=== PATIENT | female | born 1965 | race Two or more races ===

== ENCOUNTER 2017-07-14 09:29 | Outpatient (CLI) | payer BC ==
[2017-07-14 11:24] LABS: ALBUMIN 3.5 g/dL (3.4-5.0); BILIRUBIN,TOTAL 0.6 mg/dL (0.2-1.0); CALCIUM, SERUM 8.4 mg/dL (8.5-10.1); CREATININE 0.5 mg/dL (0.6-1.3); POTASSIUM 3.7 mmol/L (3.5-5.1); TOTAL PROTEIN, SERUM 7.7 g/dL (6.4-8.2)
[2017-07-14 11:37] LABS: THYROID STIMULATING HORMONE 1.209 uIU/mL (0.358-3.74)
[2017-07-14 11:45] LABS: BASOPHILS # (AUTO) 0.1 /CMM (0.0-0.2); BASOPHILS % (AUTO) 0.8 % (0.0-2.0); EOSINOPHILS % (AUTO) 3.4 % (0.0-6.0); HEMATOCRIT 40 % (33-45); HEMOGLOBIN 13.3 g/dL (11.5-14.8); LYMPHOCYTES # (AUTO) 2.1 /CMM (0.8-4.8); MEAN CORPUSCULAR HGB CONC 34 g/dl (31.0-36.0); MEAN CORPUSCULAR VOLUME 83 fL (82-100); MONOCYTES # (AUTO) 0.4 /CMM (0.1-1.30); MONOCYTES % (AUTO) 5.6 % (2.0-12.0); NEUTROPHILS # (AUTO) 4.8 /CMM (1.8-8.9); NEUTROPHILS % (AUTO) 62.2 % (43.0-81.0); PLATELET COUNT (AUTO) 225 /CMM (150-450); RDW COEFFICIENT OF VARIATION 14.8 (11.5-15.0); RED BLOOD CELL COUNT(AUTO) 4.77 MIL/uL (4.0-5.2); WHITE BLOOD COUNT (AUTO) 7.7 K/uL (4.3-11.0)
[2017-07-14 11:49] LABS: APPEARANCE,URINE CLEAR (CLEAR); BILIRUBIN,URINE NEGATIVE (NEGATIVE); BLOOD, URINE NEGATIVE Ery/uL (NEGATIVE); COLOR,URINE YELLOW (YELLOW); KETONES,URINE NEGATIVE (NEGATIVE); LEUKOCYTE ESTERASE ,URINE NEGATIVE (NEGATIVE); NITRITE, URINE NEGATIVE (NEGATIVE); PH,URINE 6.5 (5.0-8.0); PROTEIN,URINE NEGATIVE (NEGATIVE); UGLUCOSE NEGATIVE (NEGATIVE); UROBILINOGEN,URINE 0.2 EU/dL (0.2)
[2017-07-14 11:54] LABS: C-REACTIVE PROTEIN 0.7 mg/dL (0.0-0.9)
[2017-07-14 12:07] LABS: OCCULT BLOOD STOOL NEGATIVE (NEGATIVE)
[2017-07-15 08:10] LABS: T3, FREE 2.9 pg/mL (2.0-4.4)
== END 2017-07-14 23:59 | disposition home or self-care (01) ==
LOC: LAB 09:29
DX: Z00.01 Encounter for general adult medical examination with abnormal findings (principal); R79.89 Other specified abnormal findings of blood chemistry
CPT/HCPCS: 36415; 80053-TC; 80061-TC; 81000-TC; 82272-TC; 82306; 84439-TC; 84443-TC; 84481; 85025-TC; 85652-TC; 86140-TC

== ENCOUNTER 2017-08-04 11:23 | Outpatient (CLI) | payer BC ==
[2017-08-04 13:17] LABS: BILIRUBIN,URINE NEGATIVE (NEGATIVE); BLOOD, URINE NEGATIVE Ery/uL (NEGATIVE); COLOR,URINE DARK YELLO (YELLOW); KETONES,URINE TRACE (NEGATIVE); LEUKOCYTE ESTERASE ,URINE NEGATIVE (NEGATIVE); NITRITE, URINE POSITIVE (NEGATIVE); PROTEIN,URINE TRACE mg/dl (NEGATIVE); UGLUCOSE NEGATIVE (NEGATIVE)
[2017-08-04 13:20] LABS: APPEARANCE,URINE CLEAR (CLEAR)
[2017-08-04 13:31] LABS: BACTERIA,URINE Few /HPF (None Seen); RBC,URINE 0-2 /HPF (0-2); SQUAMOUS EPITHELIAL CELL,UR 0-2 /HPF (None Seen); WBC,URINE 0-2 /HPF (0-3)
== END 2017-08-04 23:59 | disposition home or self-care (01) ==
LOC: LAB 11:23
DX: N39.0 Urinary tract infection, site not specified (principal)
CPT/HCPCS: 81000-TC; 87086-TC

== ENCOUNTER 2017-08-11 10:56 | Outpatient (CLI) | payer BC | END 2017-08-11 23:59 | disposition home or self-care (01) | LOC: LAB 10:56 | DX: I77.810 Thoracic aortic ectasia (principal) | CPT/HCPCS: 36415; 71046; 85652-TC; 86140-TC; 86431-TC ==

== ENCOUNTER 2017-09-22 18:32 | Emergency (ER) | payer BC, OTHER ==
[~2017-09-22] VITALS: Ht 162.6 cm; Wt 101.3 kg
--- NOTE | 2017-09-22 18:45 | NUR ---
HIGH BLOOD PRESSURE IN DRs OFFICE DIASTOLIC >100. NAD NOTED, VSS, RESP EVEN AND UNLABORED, PT WAS PUT ON MONITOR, WAITING FOR MD MENARD.
[2017-09-22] MEDS ORDERED: IBUPROFEN 400 MG TABLET PO ONE (19:00)
[2017-09-22] MEDS ORDERED: IBUPROFEN 400 MG TABLET ONE (19:02)
[2017-09-22 19:20] LABS: BASOPHILS # (AUTO) 0.1 /CMM (0.0-0.2); BASOPHILS % (AUTO) 0.7 % (0.0-2.0); EOSINOPHILS % (AUTO) 4.5 % (0.0-6.0); HEMATOCRIT 42 % (33-45); HEMOGLOBIN 13.7 g/dL (11.5-14.8); LYMPHOCYTES # (AUTO) 2.7 /CMM (0.8-4.8); LYMPHOCYTES % (AUTO) 32.6 % (20.0-44.0); MEAN CORPUSCULAR HGB CONC 33 g/dl (31.0-36.0); MEAN CORPUSCULAR VOLUME 84 fL (82-100); MONOCYTES # (AUTO) 0.6 /CMM (0.1-1.30); MONOCYTES % (AUTO) 7.5 % (2.0-12.0); NEUTROPHILS # (AUTO) 4.4 /CMM (1.8-8.9); NEUTROPHILS % (AUTO) 54.7 % (43.0-81.0); PLATELET COUNT (AUTO) 225 /CMM (150-450); RDW COEFFICIENT OF VARIATION 14.1 (11.5-15.0); RED BLOOD CELL COUNT(AUTO) 4.99 MIL/uL (4.0-5.2); WHITE BLOOD COUNT (AUTO) 8.2 K/uL (4.3-11.0)
[2017-09-22 19:30] LABS: CALCIUM, SERUM 9.1 mg/dL (8.5-10.1); CREATININE 0.7 mg/dL (0.6-1.3); POTASSIUM 3.6 mmol/L (3.5-5.1)
[2017-09-22 19:34] LABS: INR 0.89 (0.85-1.15)
[2017-09-22 19:36] LABS: ALBUMIN 3.7 g/dL (3.4-5.0); BILIRUBIN,DIRECT 0.1 mg/dL (0.0-0.2); BILIRUBIN,TOTAL 0.7 mg/dL (0.2-1.0); TOTAL PROTEIN, SERUM 7.3 g/dL (6.4-8.2)
[2017-09-22 20:09] VITALS: BP 149/89
--- NOTE | 2017-09-22 20:11 | NUR ---
Patient discharged to home in stable condition. Written and verbal after care instructions given. Patient verbalizes understanding of instruction.
== END 2017-09-22 20:12 | disposition home or self-care (01) ==
LOC: ER 18:35
DX: R03.0 Elevated blood-pressure reading, without diagnosis of hypertension (principal); R51 Headache; H57.8 Other specified disorders of eye and adnexa
CPT/HCPCS: 36415; 70450; 71045; 80048; 80076; 83690; 85025; 85730; 99285; A4606; Z7610

== ENCOUNTER 2017-11-10 07:36 | Outpatient (CLI) | payer BC ==
[2017-11-10 08:05] LABS: BASOPHILS % (AUTO) 0.6 % (0.0-2.0); EOSINOPHILS % (AUTO) 3.4 % (0.0-6.0); HEMATOCRIT 38 % (33-45); HEMOGLOBIN 12.8 g/dL (11.5-14.8); LYMPHOCYTES # (AUTO) 2.4 /CMM (0.8-4.8); LYMPHOCYTES % (AUTO) 31.5 % (20.0-44.0); MEAN CORPUSCULAR HEMOGLOBIN 29 PG (26.0-33.0); MEAN CORPUSCULAR HGB CONC 34 g/dl (31.0-36.0); MEAN CORPUSCULAR VOLUME 86 fL (82-100); MONOCYTES # (AUTO) 0.5 /CMM (0.1-1.30); MONOCYTES % (AUTO) 6.3 % (2.0-12.0); NEUTROPHILS # (AUTO) 4.4 /CMM (1.8-8.9); NEUTROPHILS % (AUTO) 58.2 % (43.0-81.0); PLATELET COUNT (AUTO) 215 /CMM (150-450); RDW COEFFICIENT OF VARIATION 14.8 (11.5-15.0); RED BLOOD CELL COUNT(AUTO) 4.48 MIL/uL (4.0-5.2); WHITE BLOOD COUNT (AUTO) 7.6 K/uL (4.3-11.0)
[2017-11-10 08:44] LABS: THYROID STIMULATING HORMONE 3.872 uIU/mL (0.358-3.74)
[2017-11-10 09:04] LABS: ALBUMIN 3.4 g/dL (3.4-5.0); BILIRUBIN,TOTAL 0.8 mg/dL (0.2-1.0); CALCIUM, SERUM 8.5 mg/dL (8.5-10.1); CREATININE 0.6 mg/dL (0.6-1.3); POTASSIUM 3.6 mmol/L (3.5-5.1); TOTAL PROTEIN, SERUM 6.9 g/dL (6.4-8.2)
== END 2017-11-10 23:59 | disposition home or self-care (01) ==
LOC: LAB 07:36
DX: E78.5 Hyperlipidemia, unspecified (principal); E66.9 Obesity, unspecified; R53.83 Other fatigue
CPT/HCPCS: 36415; 80053-TC; 80061-TC; 84443-TC; 85025-TC

== ENCOUNTER 2017-12-05 08:00 | Outpatient (CLI) | payer BC ==
[2017-12-05 08:55] LABS: C-REACTIVE PROTEIN 0.6 mg/dL (0.0-0.9); THYROID STIMULATING HORMONE 1.611 uIU/mL (0.358-3.74)
[2017-12-06 16:09] LABS: *ANA ANTI-CENTROMERE B AB <0.2 AI (0.0-0.9); *ANA ANTI-DNA(DS) AB, QN 1 IU/mL (0-9); *ANA ANTI-JO-1 <0.2 AI (0.0-0.9); *ANA ANTICHROMATIN ANTIBODY <0.2 AI (0.0-0.9); *ANA RNP ANTIBODIES <0.2 AI (0.0-0.9); *ANA SJOGREN'S ANTI-SS-A <0.2 AI (0.0-0.9); *ANA SJOGREN'S ANTI-SS-B <0.2 AI (0.0-0.9); *ANAANTI-SCLERODERMA-70 AB <0.2 AI (0.0-0.9); *ANASMITH AB <0.2 AI (0.0-0.9)
== END 2017-12-05 23:59 | disposition home or self-care (01) ==
LOC: LAB 08:00
DX: E03.9 Hypothyroidism, unspecified (principal); R53.81 Other malaise
CPT/HCPCS: 36415; 84443-TC; 85652-TC; 86140-TC; 86225; 86235; 86431-TC

== ENCOUNTER 2018-05-07 07:22 | Outpatient (CLI) | payer BC ==
[2018-05-07 07:56] LABS: APPEARANCE,URINE SL CLOUDY (CLEAR); BILIRUBIN,URINE NEGATIVE (NEGATIVE); BLOOD, URINE NEGATIVE Ery/uL (NEGATIVE); COLOR,URINE YELLOW (YELLOW); KETONES,URINE NEGATIVE (NEGATIVE); LEUKOCYTE ESTERASE ,URINE NEGATIVE (NEGATIVE); NITRITE, URINE NEGATIVE (NEGATIVE); PH,URINE 5.5 (5.0-8.0); PROTEIN,URINE NEGATIVE (NEGATIVE); UGLUCOSE NEGATIVE (NEGATIVE); UROBILINOGEN,URINE 0.2 EU/dL (0.2)
[2018-05-07 07:59] LABS: BASOPHILS # (AUTO) 0.1 /CMM (0.0-0.2); BASOPHILS % (AUTO) 1.1 % (0.0-2.0); EOSINOPHILS % (AUTO) 4.4 % (0.0-6.0); HEMATOCRIT 43 % (33-45); HEMOGLOBIN 14.5 g/dL (11.5-14.8); LYMPHOCYTES % (AUTO) 31.9 % (20.0-44.0); MEAN CORPUSCULAR HGB CONC 33 g/dl (31.0-36.0); MEAN CORPUSCULAR VOLUME 85 fL (82-100); MONOCYTES # (AUTO) 0.5 /CMM (0.1-1.30); MONOCYTES % (AUTO) 7.8 % (2.0-12.0); NEUTROPHILS # (AUTO) 3.5 /CMM (1.8-8.9); NEUTROPHILS % (AUTO) 54.8 % (43.0-81.0); PLATELET COUNT (AUTO) 212 /CMM (150-450); RED BLOOD CELL COUNT(AUTO) 5.09 MIL/uL (4.0-5.2); WHITE BLOOD COUNT (AUTO) 6.4 K/uL (4.3-11.0)
[2018-05-07 08:12] LABS: BILIRUBIN,TOTAL 1.1 mg/dL (0.2-1.0); CREATININE 0.7 mg/dL (0.6-1.3); POTASSIUM 3.8 mmol/L (3.5-5.1); TOTAL PROTEIN, SERUM 7.5 g/dL (6.4-8.2)
[2018-05-07 08:20] LABS: FREE T4 (FREE THYROXINE) 1.03 ng/dL (0.76-1.46); THYROID STIMULATING HORMONE 1.933 uIU/mL (0.358-3.74)
== END 2018-05-07 23:59 | disposition home or self-care (01) ==
LOC: LAB 07:22
DX: I10 Essential (primary) hypertension (principal); K21.9 Gastro-esophageal reflux disease without esophagitis; R53.81 Other malaise; R53.83 Other fatigue
CPT/HCPCS: 36415; 80053-TC; 80061-TC; 81000-TC; 84439-TC; 84443-TC; 84481; 85025-TC; 87086-TC

== ENCOUNTER 2018-06-23 08:13 | Outpatient (CLI) | payer BC ==
[2018-06-23 09:14] LABS: APPEARANCE,URINE CLEAR (CLEAR); BILIRUBIN,URINE NEGATIVE (NEGATIVE); BLOOD, URINE NEGATIVE Ery/uL (NEGATIVE); KETONES,URINE TRACE (NEGATIVE); LEUKOCYTE ESTERASE ,URINE NEGATIVE (NEGATIVE); NITRITE, URINE NEGATIVE (NEGATIVE); PH,URINE 5.5 (5.0-8.0); PROTEIN,URINE NEGATIVE (NEGATIVE); UGLUCOSE NEGATIVE (NEGATIVE); UROBILINOGEN,URINE 0.2 EU/dL (0.2)
[2018-06-23 09:33] LABS: COLOR,URINE YELLOW (YELLOW)
[2018-06-23 09:35] LABS: BACTERIA,URINE Few /HPF (None Seen); RBC,URINE 0-2 /HPF (0-2); SQUAMOUS EPITHELIAL CELL,UR Few /HPF (None Seen)
[2018-06-23 09:36] LABS: MUCUS,URINE Few /LPF (None Seen)
== END 2018-06-23 23:59 | disposition home or self-care (01) ==
LOC: LAB 08:13
DX: N39.0 Urinary tract infection, site not specified (principal); R05 Cough
CPT/HCPCS: 71046; 81000-TC; 87086-TC; 87186-TC

== ENCOUNTER 2018-09-22 07:36 | Outpatient (CLI) | payer BC ==
[2018-09-22 09:26] LABS: APPEARANCE,URINE CLEAR (CLEAR); BILIRUBIN,URINE NEGATIVE (NEGATIVE); BLOOD, URINE NEGATIVE Ery/uL (NEGATIVE); COLOR,URINE YELLOW (YELLOW); KETONES,URINE NEGATIVE (NEGATIVE); LEUKOCYTE ESTERASE ,URINE NEGATIVE (NEGATIVE); NITRITE, URINE NEGATIVE (NEGATIVE); PROTEIN,URINE NEGATIVE (NEGATIVE); UGLUCOSE NEGATIVE (NEGATIVE); UROBILINOGEN,URINE 0.2 EU/dL (0.2)
[2018-09-22 09:29] LABS: BASOPHILS # (AUTO) 0.1 /CMM (0.0-0.2); EOSINOPHILS % (AUTO) 3.9 % (0.0-6.0); HEMATOCRIT 41 % (33-45); HEMOGLOBIN 13.5 g/dL (11.5-14.8); LYMPHOCYTES # (AUTO) 2.3 /CMM (0.8-4.8); LYMPHOCYTES % (AUTO) 38.3 % (20.0-44.0); MEAN CORPUSCULAR HGB CONC 33 g/dl (31.0-36.0); MEAN CORPUSCULAR VOLUME 85 fL (82-100); MONOCYTES # (AUTO) 0.4 /CMM (0.1-1.30); MONOCYTES % (AUTO) 7.4 % (2.0-12.0); NEUTROPHILS # (AUTO) 2.9 /CMM (1.8-8.9); NEUTROPHILS % (AUTO) 49.4 % (43.0-81.0); PLATELET COUNT (AUTO) 205 /CMM (150-450); RED BLOOD CELL COUNT(AUTO) 4.78 MIL/uL (4.0-5.2); WHITE BLOOD COUNT (AUTO) 5.9 K/uL (4.3-11.0)
[2018-09-22 09:46] LABS: ALBUMIN 3.7 g/dL (3.4-5.0); BILIRUBIN,TOTAL 0.8 mg/dL (0.2-1.0); CREATININE 0.7 mg/dL (0.6-1.3); POTASSIUM 3.9 mmol/L (3.5-5.1); TOTAL PROTEIN, SERUM 7.3 g/dL (6.4-8.2)
[2018-09-22 10:05] LABS: C-REACTIVE PROTEIN 0.3 mg/dL (0.0-0.9); THYROID STIMULATING HORMONE 2.323 uIU/mL (0.358-3.74); URIC ACID 5.4 mg/dL (2.6-7.2)
[2018-09-23 08:07] LABS: T3, FREE 3.3 pg/mL (2.0-4.4)
[2018-09-23 19:08] LABS: *ANA ANTI-CENTROMERE B AB <0.2 AI (0.0-0.9); *ANA ANTI-DNA(DS) AB, QN 1 IU/mL (0-9); *ANA ANTI-JO-1 <0.2 AI (0.0-0.9); *ANA ANTICHROMATIN ANTIBODY <0.2 AI (0.0-0.9); *ANA RNP ANTIBODIES <0.2 AI (0.0-0.9); *ANA SJOGREN'S ANTI-SS-A <0.2 AI (0.0-0.9); *ANA SJOGREN'S ANTI-SS-B <0.2 AI (0.0-0.9); *ANAANTI-SCLERODERMA-70 AB <0.2 AI (0.0-0.9); *ANASMITH AB <0.2 AI (0.0-0.9)
[2018-09-24 02:09] LABS: FOLIC ACID 13.7 ng/mL (>3.0)
[2018-09-24 19:13] LABS: CCP IgG/IgA AB 4 units (0-19)
== END 2018-09-22 23:59 | disposition home or self-care (01) ==
LOC: LAB 07:36
PROVIDERS: ATTEND Legal Medicine
DX: Z00.00 Encounter for general adult medical examination without abnormal findings (principal); E11.9 Type 2 diabetes mellitus without complications; I10 Essential (primary) hypertension; E03.9 Hypothyroidism, unspecified; D64.9 Anemia, unspecified; E55.9 Vitamin D deficiency, unspecified
CPT/HCPCS: 36415; 80053-TC; 80061-TC; 81000-TC; 82306; 82728-TC; 83540-TC; 84439-TC; 84443-TC; 84481; 84550-TC; 85025-TC; 85652-TC; 86140-TC; 86200; 86225; 86235; 86431-TC

== ENCOUNTER 2018-12-07 11:42 | Outpatient (CLI) | payer BC ==
[2018-12-07 12:09] LABS: BILIRUBIN,URINE NEGATIVE (NEGATIVE); BLOOD, URINE NEGATIVE Ery/uL (NEGATIVE); COLOR,URINE YELLOW (YELLOW); KETONES,URINE NEGATIVE (NEGATIVE); LEUKOCYTE ESTERASE ,URINE NEGATIVE (NEGATIVE); NITRITE, URINE NEGATIVE (NEGATIVE); PH,URINE 5.5 (5.0-8.0); PROTEIN,URINE NEGATIVE (NEGATIVE); UGLUCOSE NEGATIVE (NEGATIVE); UROBILINOGEN,URINE 0.2 EU/dL (0.2)
[2018-12-07 12:28] LABS: APPEARANCE,URINE CLEAR (CLEAR)
== END 2018-12-07 23:59 | disposition home or self-care (01) ==
LOC: LAB 11:42
PROVIDERS: ATTEND Legal Medicine
DX: N39.0 Urinary tract infection, site not specified (principal)
CPT/HCPCS: 81000-TC; 87086-TC

== ENCOUNTER 2019-01-21 14:38 | Outpatient (CLI) | payer BC | END 2019-01-21 23:59 | disposition home or self-care (01) | LOC: RAD 14:38 | PROVIDERS: ATTEND Legal Medicine | DX: M17.11 Unilateral primary osteoarthritis, right knee (principal) | CPT/HCPCS: 73562 ==

== ENCOUNTER 2019-05-04 08:28 | Outpatient (CLI) | payer BC ==
[2019-05-04 09:25] LABS: BILIRUBIN,URINE NEGATIVE (NEGATIVE); BLOOD, URINE NEGATIVE Ery/uL (NEGATIVE); COLOR,URINE YELLOW (YELLOW); KETONES,URINE NEGATIVE (NEGATIVE); LEUKOCYTE ESTERASE ,URINE NEGATIVE (NEGATIVE); NITRITE, URINE NEGATIVE (NEGATIVE); PH,URINE 5.5 (5.0-8.0); PROTEIN,URINE NEGATIVE (NEGATIVE); UGLUCOSE NEGATIVE (NEGATIVE); UROBILINOGEN,URINE 0.2 EU/dL (0.2)
[2019-05-04 09:26] LABS: APPEARANCE,URINE SLIGHTLY CLOUDY (CLEAR)
== END 2019-05-04 23:59 | disposition home or self-care (01) ==
LOC: LAB 08:28
PROVIDERS: ATTEND Legal Medicine
DX: N39.0 Urinary tract infection, site not specified (principal)
CPT/HCPCS: 81000-TC; 87086-TC

== ENCOUNTER 2019-07-24 14:46 | Emergency (ER) | payer BC ==
[~2019-07-24] VITALS: Ht 167.6 cm; Wt 100.2 kg
[2019-07-24 14:52] VITALS: BP 146/91
== END 2019-07-24 15:07 | disposition home or self-care (01) ==
LOC: ER 14:46
DX: J02.8 Acute pharyngitis due to other specified organisms (principal); I10 Essential (primary) hypertension; E78.00 Pure hypercholesterolemia, unspecified

== ENCOUNTER 2020-01-25 08:52 | Outpatient (CLI) | payer BC | END 2020-01-25 23:59 | disposition home or self-care (01) | LOC: US 08:52 | PROVIDERS: ATTEND Legal Medicine | DX: J34.2 Deviated nasal septum (principal); E04.2 Nontoxic multinodular goiter; J34.1 Cyst and mucocele of nose and nasal sinus | CPT/HCPCS: 70486-TC; 70490-TC; 76705-TC ==

== ENCOUNTER 2020-09-05 08:32 | Outpatient (CLI) | payer BC ==
[2020-09-05 09:35] LABS: BASOPHILS # (AUTO) 0.1 /CMM (0.0-0.2); BASOPHILS % (AUTO) 1.2 % (0.0-2.0); EOSINOPHILS % (AUTO) 3.8 % (0.0-6.0); HEMATOCRIT 38 % (33-45); HEMOGLOBIN 12.5 g/dL (11.5-14.8); LYMPHOCYTES # (AUTO) 2.1 /CMM (0.8-4.8); LYMPHOCYTES % (AUTO) 31.8 % (20.0-44.0); MEAN CORPUSCULAR HGB CONC 33 g/dl (31.0-36.0); MEAN CORPUSCULAR VOLUME 85 fL (82-100); MONOCYTES # (AUTO) 0.4 /CMM (0.1-1.30); MONOCYTES % (AUTO) 5.6 % (2.0-12.0); NEUTROPHILS # (AUTO) 3.9 /CMM (1.8-8.9); NEUTROPHILS % (AUTO) 57.6 % (43.0-81.0); PLATELET COUNT (AUTO) 231 /CMM (150-450); RED BLOOD CELL COUNT(AUTO) 4.47 MIL/uL (4.0-5.2); WHITE BLOOD COUNT (AUTO) 6.7 K/uL (4.3-11.0)
[2020-09-05 10:20] LABS: C-REACTIVE PROTEIN 0.3 mg/dL (0.0-0.9); FREE T4 (FREE THYROXINE) 0.92 ng/dL (0.76-1.46); THYROID STIMULATING HORMONE 1.626 uIU/mL (0.358-3.74); URIC ACID 4.9 mg/dL (2.6-7.2)
[2020-09-05 10:36] LABS: ALBUMIN 3.5 g/dL (3.4-5.0); BILIRUBIN,TOTAL 0.6 mg/dL (0.2-1.0); CALCIUM, SERUM 8.5 mg/dL (8.5-10.1); CREATININE 0.5 mg/dL (0.6-1.3); TOTAL PROTEIN, SERUM 7.3 g/dL (6.4-8.2)
[2020-09-05 13:11] LABS: BILIRUBIN,URINE NEGATIVE (NEGATIVE); COLOR,URINE YELLOW (YELLOW); LEUKOCYTE ESTERASE ,URINE NEGATIVE (NEGATIVE); NITRITE, URINE NEGATIVE (NEGATIVE); PH,URINE 5.5 (5.0-8.0); PROTEIN,URINE NEGATIVE (NEGATIVE); UGLUCOSE NEGATIVE (NEGATIVE); UROBILINOGEN,URINE 0.2 EU/dL (0.2)
== END 2020-09-05 23:59 | disposition home or self-care (01) ==
LOC: LAB 08:32
PROVIDERS: ATTEND Legal Medicine
DX: E11.9 Type 2 diabetes mellitus without complications (principal); I10 Essential (primary) hypertension; E78.5 Hyperlipidemia, unspecified; E03.9 Hypothyroidism, unspecified; E55.9 Vitamin D deficiency, unspecified; R53.1 Weakness; Z00.00 Encounter for general adult medical examination without abnormal findings
CPT/HCPCS: 36415; 80053-TC; 80061-TC; 82306; 82550-TC; 82607-TC; 82728-TC; 83540-TC; 84439-TC; 84443-TC; 84550-TC; 85025-TC; 85652-TC; 86140-TC; 86200; 86431-TC

== ENCOUNTER 2020-09-07 07:59 | Outpatient (CLI) | payer BC | END 2020-09-07 23:59 | disposition home or self-care (01) | LOC: CARD 07:59 | PROVIDERS: ATTEND Legal Medicine | DX: R59.1 Generalized enlarged lymph nodes (principal); I83.93 Asymptomatic varicose veins of bilateral lower extremities; M79.605 Pain in left leg; M79.604 Pain in right leg | CPT/HCPCS: 70490-TC; 93970-TC ==

== ENCOUNTER 2021-02-21 07:43 | Outpatient (CLI) | payer BC ==
[2021-02-21 10:11] LABS: BASOPHILS # (AUTO) 0.1 K/uL (0.0-0.2); BASOPHILS % (AUTO) 1.1 % (0.0-2.0); EOSINOPHILS % (AUTO) 3.3 % (0.0-6.0); HEMATOCRIT 40 % (33-45); HEMOGLOBIN 12.8 g/dL (11.5-14.8); LYMPHOCYTES % (AUTO) 33.6 % (20.0-44.0); MEAN CORPUSCULAR HGB CONC 32 g/dl (31.0-36.0); MEAN CORPUSCULAR VOLUME 87 fL (82-100); MONOCYTES # (AUTO) 0.3 K/uL (0.1-1.30); MONOCYTES % (AUTO) 5.1 % (2.0-12.0); NEUTROPHILS # (AUTO) 3.4 K/uL (1.8-8.9); NEUTROPHILS % (AUTO) 56.9 % (43.0-81.0); PLATELET COUNT (AUTO) 219 K/uL (150-450); RED BLOOD CELL COUNT(AUTO) 4.54 MIL/uL (4.0-5.2)
[2021-02-21 10:14] LABS: BILIRUBIN,URINE NEGATIVE (NEGATIVE); COLOR,URINE YELLOW (YELLOW); LEUKOCYTE ESTERASE ,URINE NEGATIVE (NEGATIVE); NITRITE, URINE NEGATIVE (NEGATIVE); PROTEIN,URINE NEGATIVE (NEGATIVE); UGLUCOSE NEGATIVE (NEGATIVE); UROBILINOGEN,URINE 0.2 EU/dL (0.2)
[2021-02-21 10:47] LABS: FREE T4 (FREE THYROXINE) 0.91 ng/dL (0.76-1.46); THYROID STIMULATING HORMONE 1.613 uIU/mL (0.358-3.74)
[2021-02-21 11:54] LABS: ALBUMIN 3.5 g/dL (3.4-5.0); BILIRUBIN,TOTAL 0.6 mg/dL (0.2-1.0); CALCIUM, SERUM 8.3 mg/dL (8.5-10.1); CREATININE 0.6 mg/dL (0.6-1.3); POTASSIUM 4.1 mmol/L (3.5-5.1); TOTAL PROTEIN, SERUM 7.1 g/dL (6.4-8.2)
[2021-02-21 12:41] LABS: BACTERIA,URINE Moderate /HPF (None Seen); RBC,URINE NONE SEEN /HPF (0-2); WBC,URINE NONE SEEN /HPF (0-3)
[2021-02-21 12:42] LABS: SQUAMOUS EPITHELIAL CELL,UR Moderate /HPF (None Seen)
== END 2021-02-21 23:59 | disposition home or self-care (01) ==
LOC: LAB 07:43
PROVIDERS: ATTEND Legal Medicine
DX: E03.9 Hypothyroidism, unspecified (principal); D64.9 Anemia, unspecified; R30.0 Dysuria; R53.1 Weakness
CPT/HCPCS: 36415; 80053-TC; 80061-TC; 81001; 82607-TC; 82728-TC; 83540-TC; 84439-TC; 84443-TC; 85025-TC; 87086-TC

== ENCOUNTER 2021-02-26 11:03 | Outpatient (CLI) | payer BC | END 2021-02-26 23:59 | disposition home or self-care (01) | LOC: US 11:03 | PROVIDERS: ATTEND Legal Medicine | DX: M54.9 Dorsalgia, unspecified (principal) | CPT/HCPCS: 76770-TC ==

== ENCOUNTER 2021-07-27 10:26 | Outpatient (CLI) | payer BC | END 2021-07-27 23:59 | disposition home or self-care (01) | LOC: RAD 10:26 | PROVIDERS: ATTEND Legal Medicine | DX: S92.911A Unspecified fracture of right toe(s), initial encounter for closed fracture (principal); M17.11 Unilateral primary osteoarthritis, right knee; X58.XXXA Exposure to other specified factors, initial encounter; Y93.89 Activity, other specified; Y92.89 Other specified places as the place of occurrence of the external cause; Y99.8 Other external cause status | CPT/HCPCS: 73562; 73630-TC ==

== ENCOUNTER 2021-11-27 08:09 | Outpatient (CLI) | payer BC ==
[2021-11-27 08:58] LABS: BASOPHILS # (AUTO) 0.1 K/uL (0.0-0.2); EOSINOPHILS % (AUTO) 3.3 % (0.0-6.0); HEMATOCRIT 39 % (33-45); LYMPHOCYTES # (AUTO) 3.4 K/uL (0.8-4.8); LYMPHOCYTES % (AUTO) 33.6 % (20.0-44.0); MEAN CORPUSCULAR HGB CONC 33 g/dl (31.0-36.0); MEAN CORPUSCULAR VOLUME 86 fL (82-100); MONOCYTES # (AUTO) 0.6 K/uL (0.1-1.30); NEUTROPHILS # (AUTO) 5.6 K/uL (1.8-8.9)
[2021-11-27 09:03] LABS: BILIRUBIN,URINE NEGATIVE (NEGATIVE); COLOR,URINE YELLOW (YELLOW); LEUKOCYTE ESTERASE ,URINE SMALL (NEGATIVE); NITRITE, URINE NEGATIVE (NEGATIVE); PH,URINE 5.5 (5.0-8.0); PROTEIN,URINE NEGATIVE (NEGATIVE); UGLUCOSE NEGATIVE (NEGATIVE); UROBILINOGEN,URINE 0.2 EU/dL (0.2)
[2021-11-27 09:47] LABS: HEMOGLOBIN 12.9 g/dL (11.5-14.8); PLATELET COUNT (AUTO) 195 K/uL (150-450); RED BLOOD CELL COUNT(AUTO) 4.56 MIL/uL (4.0-5.2); WHITE BLOOD COUNT (AUTO) 10.1 K/uL (4.3-11.0)
[2021-11-27 09:48] LABS: NEUTROPHILS % (AUTO) 56.1 % (43.0-81.0)
[2021-11-27 09:57] LABS: ALBUMIN 3.5 g/dL (3.4-5.0); BILIRUBIN,TOTAL 0.7 mg/dL (0.2-1.0); CALCIUM, SERUM 8.5 mg/dL (8.5-10.1); CREATININE 0.6 mg/dL (0.6-1.3); TOTAL PROTEIN, SERUM 7.1 g/dL (6.4-8.2)
[2021-11-27 09:59] LABS: BACTERIA,URINE Few /HPF (None Seen); RBC,URINE 0-2 /HPF (0-2)
[2021-11-27 10:18] LABS: C-REACTIVE PROTEIN 0.7 mg/dL (0.0-0.9); THYROID STIMULATING HORMONE 1.961 uIU/mL (0.358-3.74)
== END 2021-11-27 23:59 | disposition home or self-care (01) ==
LOC: LAB 08:09
PROVIDERS: ATTEND Legal Medicine
DX: Z00.00 Encounter for general adult medical examination without abnormal findings (principal); E11.9 Type 2 diabetes mellitus without complications; E78.00 Pure hypercholesterolemia, unspecified; E03.9 Hypothyroidism, unspecified; D64.9 Anemia, unspecified; E55.9 Vitamin D deficiency, unspecified
CPT/HCPCS: 80053-TC; 81001; 84443-TC; 85025-TC; 85652-TC; 86140-TC; 86200; 86431-TC; 87086-TC

== ENCOUNTER 2022-05-03 08:59 | Outpatient (CLI) | payer BC | END 2022-05-03 23:59 | disposition home or self-care (01) | LOC: CT 08:59 | PROVIDERS: ATTEND Legal Medicine | DX: J98.11 Atelectasis (principal); R06.02 Shortness of breath | CPT/HCPCS: 71250-TC ==

== ENCOUNTER → 2022-05-08 | Outpatient (CLI) | payer BC | END | disposition home or self-care (01) | LOC: CARD 07:58 | PROVIDERS: ATTEND Legal Medicine | DX: R22.33 Localized swelling, mass and lump, upper limb, bilateral (principal) ==

== ENCOUNTER 2022-05-17 08:17 | Outpatient (CLI) | payer BC ==
[2022-05-17 09:41] LABS: BILIRUBIN,URINE NEGATIVE (NEGATIVE); COLOR,URINE YELLOW (YELLOW); LEUKOCYTE ESTERASE ,URINE 1+ (NEGATIVE); NITRITE, URINE POSITIVE (NEGATIVE); PH,URINE 5.5 (5.0-8.0); PROTEIN,URINE NEGATIVE (NEGATIVE); UGLUCOSE NEGATIVE (NEGATIVE); UROBILINOGEN,URINE 0.2 EU/dL (0.2)
[2022-05-17 10:42] LABS: BACTERIA,URINE Moderate /HPF (None Seen); WBC,URINE 21-50 /HPF (0-3)
[2022-05-17 10:43] LABS: SQUAMOUS EPITHELIAL CELL,UR Few /HPF (None Seen)
== END 2022-05-17 23:59 | disposition home or self-care (01) ==
LOC: LAB 08:17
PROVIDERS: ATTEND Legal Medicine
DX: N39.0 Urinary tract infection, site not specified (principal)
CPT/HCPCS: 81001; 87086-TC

== ENCOUNTER 2022-08-22 08:10 | Outpatient (CLI) | payer BC ==
[2022-08-22 08:58] LABS: BILIRUBIN,URINE NEGATIVE (NEGATIVE); COLOR,URINE YELLOW (YELLOW); LEUKOCYTE ESTERASE ,URINE NEGATIVE (NEGATIVE); NITRITE, URINE NEGATIVE (NEGATIVE); PH,URINE 5.5 (5.0-8.0); PROTEIN,URINE NEGATIVE (NEGATIVE); UGLUCOSE NEGATIVE (NEGATIVE); UROBILINOGEN,URINE 0.2 EU/dL (0.2)
[2022-08-22 09:06] LABS: BASOPHILS # (AUTO) 0.1 K/uL (0.0-0.2); BASOPHILS % (AUTO) 1.3 % (0.0-2.0); EOSINOPHILS % (AUTO) 4.7 % (0.0-6.0); HEMATOCRIT 38 % (33-45); HEMOGLOBIN 12.6 g/dL (11.5-14.8); LYMPHOCYTES # (AUTO) 1.9 K/uL (0.8-4.8); LYMPHOCYTES % (AUTO) 35.7 % (20.0-44.0); MEAN CORPUSCULAR HGB CONC 33 g/dl (31.0-36.0); MEAN CORPUSCULAR VOLUME 86 fL (82-100); MONOCYTES # (AUTO) 0.4 K/uL (0.1-1.30); MONOCYTES % (AUTO) 7.7 % (2.0-12.0); NEUTROPHILS # (AUTO) 2.7 K/uL (1.8-8.9); NEUTROPHILS % (AUTO) 50.6 % (43.0-81.0); PLATELET COUNT (AUTO) 210 K/uL (150-450); RED BLOOD CELL COUNT(AUTO) 4.47 MIL/uL (4.0-5.2); WHITE BLOOD COUNT (AUTO) 5.3 K/uL (4.3-11.0)
[2022-08-22 09:32] LABS: URIC ACID 4.2 mg/dL (2.6-7.2)
[2022-08-22 09:49] LABS: ALBUMIN 3.4 g/dL (3.4-5.0); CREATININE 0.5 mg/dL (0.6-1.3); POTASSIUM 3.7 mmol/L (3.5-5.1)
[2022-08-22 11:14] LABS: BILIRUBIN,TOTAL 0.7 mg/dL (0.2-1.0)
== END 2022-08-22 23:59 | disposition home or self-care (01) ==
LOC: LAB 08:10
PROVIDERS: ATTEND Legal Medicine
DX: Z00.00 Encounter for general adult medical examination without abnormal findings (principal); R53.1 Weakness; E11.9 Type 2 diabetes mellitus without complications; E78.00 Pure hypercholesterolemia, unspecified; E03.9 Hypothyroidism, unspecified; D64.9 Anemia, unspecified; E55.9 Vitamin D deficiency, unspecified
CPT/HCPCS: 36415; 80053-TC; 80061-TC; 82607-TC; 82728-TC; 83540-TC; 84550-TC; 85025-TC; 87086-TC

== ENCOUNTER 2022-11-03 11:24 | Emergency (ER) | payer BC, OTHER ==
[~2022-11-03] VITALS: Ht 160 cm; Wt 96.2 kg
[2022-11-03] MEDS ORDERED: CARI350T PO ×2 (11:35→12:24)
[2022-11-03] MEDS ORDERED: NAPR-1009 PO (11:35)
[2022-11-03 11:40] VITALS: BP 135/96; TEMP 98.5; O2SAT 97
[2022-11-03] MEDS ORDERED: NAPR-1164 PO (12:24)
== END 2022-11-03 12:40 | disposition home or self-care (01) ==
LOC: ER 11:26
DX: M54.2 Cervicalgia (principal); I10 Essential (primary) hypertension; Z79.899 Other long term (current) drug therapy

== ENCOUNTER → 2023-08-27 | Outpatient (CLI) | payer BC, OTHER ==
[~2023-08-27] MED LIST: CARI350T PO; NAPR-1009 PO; NAPR-1164 PO
[2023-08-27 08:33] LABS: BASOPHILS # (AUTO) 0.1 K/uL (0.0-0.2); BASOPHILS % (AUTO) 1.3 % (0.0-2.0); EOSINOPHILS # (AUTO) 0.3 K/uL (0.0-0.7); EOSINOPHILS % (AUTO) 4.4 % (0.0-6.0); HEMATOCRIT 36 % (33-45); HEMOGLOBIN 11.9 g/dL (11.5-14.8); LYMPHOCYTES # (AUTO) 2.1 K/uL (0.8-4.8); LYMPHOCYTES % (AUTO) 34.2 % (20.0-44.0); MEAN CORPUSCULAR HEMOGLOBIN 29 PG (26.0-33.0); MEAN CORPUSCULAR HGB CONC 34 g/dl (31.0-36.0); MEAN CORPUSCULAR VOLUME 86 fL (82-100); MONOCYTES # (AUTO) 0.6 K/uL (0.1-1.30); MONOCYTES % (AUTO) 9.1 % (2.0-12.0); NEUTROPHILS # (AUTO) 3.1 K/uL (1.8-8.9); PLATELET COUNT (AUTO) 218 K/uL (150-450); RED BLOOD CELL COUNT(AUTO) 4.12 MIL/uL (4.0-5.2); RED CELL DISTRIBUTION WIDTH 14.9 % (11.5-15.0); WHITE BLOOD COUNT (AUTO) 6.2 K/uL (4.3-11.0)
[2023-08-27 08:35] LABS: APPEARANCE,URINE CLEAR (CLEAR); BILIRUBIN,URINE NEGATIVE (NEGATIVE); BLOOD, URINE NEGATIVE Ery/uL (NEGATIVE); COLOR,URINE YELLOW (YELLOW); KETONES,URINE NEGATIVE (NEGATIVE); LEUKOCYTE ESTERASE ,URINE NEGATIVE (NEGATIVE); NITRITE, URINE POSITIVE (NEGATIVE); PROTEIN,URINE NEGATIVE (NEGATIVE); UGLUCOSE NEGATIVE (NEGATIVE); UROBILINOGEN,URINE 0.2 EU/dL (0.2)
[2023-08-27 08:50] LABS: RHEUMATOID FACTOR SCREEN NEGATIVE (NEGATIVE)
[2023-08-27 08:57] LABS: ERYTHROCYTE SEDIMENTATION RATE 3 MM/HR (0-30)
[2023-08-27 09:15] LABS: RBC,URINE 0-2 /HPF (0-2)
[2023-08-27 09:16] LABS: ADD URINE CULTURE YES; BACTERIA,URINE Many /HPF (None Seen); SQUAMOUS EPITHELIAL CELL,UR Many /HPF (None Seen)
[2023-08-27 09:35] LABS: THYROID STIMULATING HORMONE 1.891 uIU/mL (0.358-3.74); URIC ACID 3.6 mg/dL (2.6-7.2)
[2023-08-27 09:40] LABS: C-REACTIVE PROTEIN 0.41 mg/dL (0.0-0.30)
[2023-08-27 09:46] LABS: BILIRUBIN,TOTAL 0.6 mg/dL (0.2-1.0); CALCIUM, SERUM 8.5 mg/dL (8.5-10.1); CREATININE 0.5 mg/dL (0.6-1.3); POTASSIUM 3.7 mmol/L (3.5-5.1); TOTAL PROTEIN, SERUM 6.6 g/dL (6.4-8.2)
[2023-08-28 09:10] LABS: FOLIC ACID 9.1 ng/mL (>3.0)
[2023-08-29 10:09] LABS: CCP IgG/IgA AB 3 units (0-19)
== END | disposition home or self-care (01) ==
LOC: LAB 07:57
PROVIDERS: ATTEND Legal Medicine
DX: Z00.00 Encounter for general adult medical examination without abnormal findings (principal); R53.1 Weakness; E11.9 Type 2 diabetes mellitus without complications; E55.9 Vitamin D deficiency, unspecified; I10 Essential (primary) hypertension; E78.2 Mixed hyperlipidemia; E03.9 Hypothyroidism, unspecified; D64.9 Anemia, unspecified
CPT/HCPCS: 36415; 80053-TC; 80061-TC; 81001; 82306; 82607-TC; 82728-TC; 83540-TC; 84439-TC; 84443-TC; 84550-TC; 85025-TC; 85652-TC; 86140-TC; 86200; 86431-TC; 87086-TC

== ENCOUNTER 2025-01-10 10:03 | Outpatient (CLI) | payer BC ==
[2025-01-10 11:16] LABS: PLATELET COUNT (AUTO) 214 K/uL (150-450); RED BLOOD CELL COUNT(AUTO) 4.54 MIL/uL (4.0-5.2); RED CELL DISTRIBUTION WIDTH 15.2 % (11.5-15.0); WHITE BLOOD COUNT (AUTO) 7.2 K/uL (4.3-11.0)
[2025-01-10 11:22] LABS: ERYTHROCYTE SEDIMENTATION RATE 20 MM/HR (0-30)
[2025-01-10 11:28] LABS: IRON, SERUM 59.0 ug/dl (50-175)
[2025-01-10 11:54] LABS: ASPARTATE AMINOTRANSFERASE 22.0 U/L (15-37); CALCIUM, SERUM 8.6 mg/dL (8.5-10.1); CREATININE 0.7 mg/dL (0.6-1.3); SODIUM SERUM 142.0 mmol/L (136-145); TOTAL PROTEIN, SERUM 7.1 g/dL (6.4-8.2); UREA NITROGEN, BLOOD 14.0 mg/dL (7-18)
[2025-01-10 12:07] LABS: APPEARANCE,URINE CLEAR (CLEAR); BLOOD, URINE NEGATIVE Ery/uL (NEGATIVE); LEUKOCYTE ESTERASE ,URINE NEGATIVE (NEGATIVE); NITRITE, URINE NEGATIVE (NEGATIVE); UGLUCOSE NEGATIVE (NEGATIVE)
[2025-01-11 04:12] LABS: VIT D, 25-HYDROXY 33.1 ng/mL (30.0-100.0)
[2025-01-11 05:08] LABS: T3 TOTAL 140.0 ng/dL (71-180)
[2025-01-11 13:07] LABS: FOLIC ACID 17.2 ng/mL (>3.0)
== END 2025-01-10 23:59 | disposition home or self-care (01) ==
LOC: LAB 10:03
PROVIDERS: ATTEND Physician Assistant Medical
DX: M25.50 Pain in unspecified joint (principal); M19.90 Unspecified osteoarthritis, unspecified site; D51.9 Vitamin B12 deficiency anemia, unspecified; Z79.899 Other long term (current) drug therapy; M79.7 Fibromyalgia; E55.9 Vitamin D deficiency, unspecified; Z00.00 Encounter for general adult medical examination without abnormal findings; M25.561 Pain in right knee; M50.30 Other cervical disc degeneration, unspecified cervical region; D64.9 Anemia, unspecified
CPT/HCPCS: 36415; 80053-TC; 82306; 82607-TC; 83540-TC; 84436-TC; 84443-TC; 84480; 84550-TC; 85025-TC; 85652-TC; 86140-TC; 87086-TC

== ENCOUNTER 2025-02-12 06:31 | Outpatient (CLI) | payer BC ==
[2025-02-12 08:13] LABS: PLATELET COUNT (AUTO) 207 K/uL (150-450); RED BLOOD CELL COUNT(AUTO) 4.49 MIL/uL (4.0-5.2); RED CELL DISTRIBUTION WIDTH 14.8 % (11.5-15.0); WHITE BLOOD COUNT (AUTO) 7.1 K/uL (4.3-11.0)
[2025-02-12 08:23] LABS: APPEARANCE,URINE CLEAR (CLEAR); BLOOD, URINE NEGATIVE Ery/uL (NEGATIVE); LEUKOCYTE ESTERASE ,URINE NEGATIVE (NEGATIVE); NITRITE, URINE NEGATIVE (NEGATIVE); UGLUCOSE NEGATIVE (NEGATIVE)
[2025-02-12 08:42] LABS: IRON, SERUM 65.0 ug/dl (50-175)
[2025-02-12 08:55] LABS: LDL 119.0 mg/dL (0-99)
[2025-02-12 09:44] LABS: ASPARTATE AMINOTRANSFERASE 24.0 U/L (15-37); CALCIUM, SERUM 8.5 mg/dL (8.5-10.1); CREATININE 0.6 mg/dL (0.6-1.3); SODIUM SERUM 140.0 mmol/L (136-145); TOTAL PROTEIN, SERUM 6.9 g/dL (6.4-8.2); UREA NITROGEN, BLOOD 20.0 mg/dL (7-18)
[2025-02-14 07:07] LABS: FOLIC ACID 13.1 ng/mL (>3.0)
[2025-02-14 23:08] LABS: VIT D, 25-HYDROXY 35.6 ng/mL (30.0-100.0)
== END 2025-02-12 23:59 | disposition home or self-care (01) ==
LOC: ER 06:31
PROVIDERS: ATTEND Emergency Medicine
DX: Z00.00 Encounter for general adult medical examination without abnormal findings (principal); E78.00 Pure hypercholesterolemia, unspecified; R53.1 Weakness; E11.9 Type 2 diabetes mellitus without complications; E55.9 Vitamin D deficiency, unspecified; D64.9 Anemia, unspecified; E03.9 Hypothyroidism, unspecified
CPT/HCPCS: 36415; 80053-TC; 80061-TC; 82306; 82607-TC; 82728-TC; 83540-TC; 84439-TC; 84443-TC; 84550-TC; 85025-TC; 86140-TC; 87086-TC